=== PATIENT | female | born 1945 | race Caucasian/White ===

== ENCOUNTER → 2016-12-26 | Outpatient (CLI) | payer MEDICARE, OTHER ==
[~2016-12-26] MED LIST: DOXY40CP PO; LISI-167 PO
== END | disposition home or self-care (01) ==
LOC: CFH 12:52
PROVIDERS: ATTEND Family Medicine
DX: Z12.31 Encounter for screening mammogram for malignant neoplasm of breast (principal)
CPT/HCPCS: G0202

== ENCOUNTER → 2017-10-09 | Outpatient (CLI) | payer MEDICARE, OTHER | LOC: CFH 07:22 | PROVIDERS: ATTEND Internal Medicine Gastroenterology | DX: K70.9 Alcoholic liver disease, unspecified (principal); R94.5 Abnormal results of liver function studies; R11.10 Vomiting, unspecified; R63.0 Anorexia; R63.4 Abnormal weight loss | CPT/HCPCS: 76700 ==

== ENCOUNTER → 2018-01-23 | Outpatient (CLI) | payer MEDICARE, OTHER | END | disposition home or self-care (01) | LOC: CFH 10:44 | PROVIDERS: ATTEND Family Medicine | DX: Z12.31 Encounter for screening mammogram for malignant neoplasm of breast (principal); R92.1 Mammographic calcification found on diagnostic imaging of breast | CPT/HCPCS: 77063; 77067 ==

== ENCOUNTER 2018-12-31 13:36 | Outpatient (CLI) | payer MEDICARE, OTHER | END 2018-12-31 23:59 | disposition home or self-care (01) | LOC: CFH 13:36 | PROVIDERS: ATTEND Family Medicine | DX: Z13.820 Encounter for screening for osteoporosis (principal); Z78.0 Asymptomatic menopausal state | CPT/HCPCS: 77080 ==

== ENCOUNTER 2019-05-30 11:11 | Inpatient (IN) | payer MEDICARE, OTHER ==
[~2019-05-30] VITALS: Ht 170.2 cm; Wt 66.0 kg
--- NOTE | 2019-05-30 11:39 | NUR ---
SHOEBLACK: PT TO ROOM FROM LOBBY VIA W/C
--- NOTE | 2019-05-30 11:53 | NUR ---
MD EXAMINING PT. FAMILY AT BEDSIDE EXPRESSING CONCERNS ABOUT PT'S ABILITY TO CARE FOR HERSELF.
[2019-05-30] MEDS ORDERED: SODIUM CHLORIDE 0.9% 1,000 ML IV ONE ×2 (11:54→13:22)
[2019-05-30] MEDS ORDERED: LORazepam 2 MG/ML, 1ML IVPush ONE (12:00)
[2019-05-30] MEDS ORDERED: SODIUM CHLORIDE 0.9% 1,000ML IVBOLUS ONE (12:00)
[2019-05-30] MEDS ORDERED: SODIUM CHLORIDE FLUSH 10ML SYR IVF ONE (12:00)
[2019-05-30] MEDS ORDERED: ONDANSETRON 2MG/ML, 2ML IVPush ONE (12:00)
[2019-05-30] MEDS ORDERED: ONDANSETRON 2MG/ML, 2ML ONE (12:23)
[2019-05-30] MEDS ORDERED: LORazepam 2 MG/ML, 1ML ONE (12:24)
[2019-05-30 12:25] LABS: BASOPHILS % (AUTO) 0 % (0-1); EOSINOPHILS # (AUTO) 0.02 x10^3/uL (0-0.4); EOSINOPHILS % (AUTO) 1 % (1-7); LYMPHOCYTES # (AUTO) 0.45 x10^3/uL (1-3.4); LYMPHOCYTES % (AUTO) 12 % (22-44); MD NO; MEAN CORPUSCULAR HEMOGLOBIN 35.5 pg (27.0-34.8); MEAN CORPUSCULAR HGB CONC 33.9 g/dL (32.4-35.8); MEAN CORPUSCULAR VOLUME 104.6 fL (80-100); MEAN PLATELET VOLUME 5.9 fL (7.4-10.4); MONOCYTES # (AUTO) 0.31 x10^3/uL (0.2-0.8); MONOCYTES % (AUTO) 8 % (2-9); NEUTROPHILS # (AUTO) 2.92 x10^3/uL (1.8-6.8); NEUTROPHILS % (AUTO) 79 % (42-75); PLATELET COUNT 109 x10^3/uL (130-400); RED BLOOD COUNT 4.16 x10^6/uL (3.82-5.3); RED CELL DISTRIBUTION WIDTH 14.9 % (9.6-15.2)
--- NOTE | 2019-05-30 12:32 | NUR ---
AFTER MEDICATED PER MAR, PT TO CT.
[2019-05-30 12:38] LABS: ALANINE AMINOTRANSFERASE 216 U/L (12-78); ALBUMIN 4.1 g/dL (3.4-5.0); ANION GAP 12 mmol/L (5-15); CALCIUM 8.4 mg/dL (8.5-10.1); CHLORIDE 99 mmol/L (98-107); CREATININE 0.62 mg/dL (0.55-1.02)
[2019-05-30 12:40] LABS: ALKALINE PHOSPHATASE 94 U/L (45-117); BILIRUBIN,TOTAL 1.2 mg/dL (0.2-1.0); TOTAL PROTEIN 7.2 g/dL (6.4-8.2)
[2019-05-30] MEDS ORDERED: SODIUM CHLORIDE FLUSH 10ML SYR IVF PRN (13:30)
[2019-05-30] MEDS ORDERED: THIAMINE 100MG TABLET PO ONE (13:30)
--- NOTE | 2019-05-30 13:42 | NUR ---
pt less shaky and feeling better since medicated. hospitalist at bedside
[2019-05-30 13:58] LABS: MICROSCOPIC AUTO
[2019-05-30] MEDS ORDERED: CHLORDIAZEPOXIDE 25 MG CAPSULE PO PRN ×3 (14:00)
[2019-05-30] MEDS ORDERED: CHLORDIAZEPOXIDE 10 MG CAPSULE PO PRN ×2 (14:00→19:00)
[2019-05-30] MEDS ORDERED: ONDANSETRON 2MG/ML, 2ML IV PRN (14:00)
[2019-05-30 14:03] LABS: CULTURE INDICATED? NO
--- NOTE | 2019-05-30 14:05 | NUR ---
report to edgar [facility]. pt to be transported
[2019-05-30 15:04] VITALS: BP 144/93
[2019-05-30] MEDS: SODIUM CHLORIDE 0.9% 1,000 ML IV SCH (15:37)
[2019-05-30] MEDS ORDERED: MAGNESIUM SULFATE PMX 2GM/50ML 50 ML IV ONE (16:00)
[2019-05-30] MEDS ORDERED: [UNRECOGNIZED DRUG - REMARK] MC PRN (19:00)
[2019-05-30] MEDS ORDERED: CHLORDIAZEPOXIDE 5 MG CAPSULE PO PRN ×2 (19:00)
[2019-05-30] MEDS: APIXABAN 5 MG TABLET PO SCH (21:00)
[2019-05-30 21:58] VITALS: BP 138/84
[2019-05-31 00:23] VITALS: BP 151/83
[2019-05-31] MEDS: SODIUM CHLORIDE 0.9% 1,000 ML IV SCH ×4 (02:01→21:57)
[2019-05-31 05:09] LABS: AMPHETAMINE SCREEN, URINE Negative (Negative); BARBITURATE SCREEN, URINE Negative (Negative); BENZODIAZEPINE SCREEN, URINE Positive (Negative); CANNABINOID SCREEN, URINE Negative (Negative); COCAINE SCREEN, URINE Negative (Negative); METHADONE SCREEN, URINE Negative (Negative); OPIATE SCREEN, URINE Negative (Negative)
[2019-05-31 07:25] VITALS: BP 137/89
[2019-05-31] MEDS ORDERED: LORazepam 0.5MG TABLET PO PRN (08:30)
[2019-05-31] MEDS ORDERED: LORazepam 2 MG/ML, 1ML IV PRN ×2 (08:30)
[2019-05-31] MEDS ORDERED: LORazepam 1MG TABLET PO PRN ×2 (08:30)
[2019-05-31] MEDS: PANTOPRAZOLE 40 MG IV IVPush SCH (08:36)
[2019-05-31] MEDS: FOLIC ACID 1 MG TABLET PO SCH (08:36)
[2019-05-31] MEDS: THIAMINE 100MG TABLET PO SCH (08:36)
[2019-05-31] MEDS: MULTIVITAMINS/MINERALS TABLET PO SCH (08:36)
[2019-05-31] MEDS: LISINOPRIL 10 MG TABLET PO SCH (08:37)
[2019-05-31] MEDS: APIXABAN 5 MG TABLET PO SCH ×2 (08:44→21:57)
[2019-05-31 09:39] LABS: CLOSTRIDIUM DIFFICILE ANTIGEN NEGATIVE; CLOSTRIDIUM DIFFICILE TOXIN NEGATIVE (Negative)
[2019-05-31 13:04] VITALS: BP 118/80
[2019-05-31] MEDS: LORazepam 2 MG/ML, 1ML IV PRN ×3 (14:10→21:57)
[2019-05-31] MEDS ORDERED: LISI-170 PO (14:46)
[2019-05-31 20:06] VITALS: BP 136/94
[2019-06-01 01:54] VITALS: BP 122/85
[2019-06-01 05:22] LABS: CALCIUM 7.7 mg/dL (8.5-10.1); CHLORIDE 111 mmol/L (98-107)
[2019-06-01 05:29] LABS: ALANINE AMINOTRANSFERASE 121 U/L (12-78); ALBUMIN 2.8 g/dL (3.4-5.0); ALKALINE PHOSPHATASE 59 U/L (45-117); ANION GAP 7 mmol/L (5-15); BILIRUBIN,TOTAL 0.9 mg/dL (0.2-1.0); CREATININE 0.41 mg/dL (0.55-1.02); TOTAL PROTEIN 5.4 g/dL (6.4-8.2)
[2019-06-01] MEDS: SODIUM CHLORIDE 0.9% 1,000 ML IV SCH ×2 (05:29→12:44)
[2019-06-01] MEDS: PANTOPRAZOLE 40 MG IV IVPush SCH (07:36)
[2019-06-01 07:46] VITALS: BP 148/95
[2019-06-01] MEDS: THIAMINE 100MG TABLET PO SCH (08:37)
[2019-06-01] MEDS: FOLIC ACID 1 MG TABLET PO SCH (08:37)
[2019-06-01] MEDS: LISINOPRIL 10 MG TABLET PO SCH (08:37)
[2019-06-01] MEDS: APIXABAN 5 MG TABLET PO SCH ×2 (08:37→20:35)
[2019-06-01] MEDS: MULTIVITAMINS/MINERALS TABLET PO SCH (08:37)
[2019-06-01] MEDS: LORazepam 2 MG/ML, 1ML IV PRN ×2 (11:35→14:25)
[2019-06-01 14:55] VITALS: BP 160/97
[2019-06-01 19:55] VITALS: BP 150/104
[2019-06-01 20:30] VITALS: BP 147/96
[2019-06-01] MEDS: LORazepam 1MG TABLET PO PRN (20:42)
[2019-06-02] MEDS: LORazepam 1MG TABLET PO PRN ×3 (01:04→14:08)
[2019-06-02 01:08] VITALS: BP 142/91
[2019-06-02 05:11] VITALS: BP 142/94
[2019-06-02] MEDS: SODIUM CHLORIDE 0.9% 1,000 ML IV SCH (05:14)
[2019-06-02] MEDS: PANTOPROZOLE 40MG TABLET PO SCH (05:15)
[2019-06-02 05:23] LABS: CALCIUM 8.1 mg/dL (8.5-10.1); CHLORIDE 107 mmol/L (98-107)
[2019-06-02 05:29] LABS: ALANINE AMINOTRANSFERASE 155 U/L (12-78); ALBUMIN 3.1 g/dL (3.4-5.0); ALKALINE PHOSPHATASE 59 U/L (45-117); ANION GAP 7 mmol/L (5-15); BILIRUBIN,TOTAL 0.9 mg/dL (0.2-1.0); CREATININE 0.33 mg/dL (0.55-1.02); TOTAL PROTEIN 5.8 g/dL (6.4-8.2)
[2019-06-02 09:00] VITALS: BP 128/86
[2019-06-02] MEDS: THIAMINE 100MG TABLET PO SCH (09:02)
[2019-06-02] MEDS: FOLIC ACID 1 MG TABLET PO SCH (09:02)
[2019-06-02] MEDS: LISINOPRIL 20 MG TABLET PO SCH (09:02)
[2019-06-02] MEDS: MULTIVITAMINS/MINERALS TABLET PO SCH (09:02)
[2019-06-02] MEDS: POTASSIUM CHLORIDE 20 MEQ TAB.ER.PRT PO SCH ×2 (09:02→18:03)
[2019-06-02] MEDS: APIXABAN 5 MG TABLET PO SCH ×2 (09:02→21:20)
[2019-06-02 14:19] VITALS: BP 125/86
[2019-06-02 20:10] VITALS: BP 148/99
[2019-06-03 01:18] VITALS: BP 143/83
[2019-06-03] MEDS: SODIUM CHLORIDE 0.9% 1,000 ML IV SCH ×2 (02:35→23:56)
[2019-06-03] MEDS: PANTOPROZOLE 40MG TABLET PO SCH (05:48)
[2019-06-03 06:05] LABS: ANION GAP 6 mmol/L (5-15); CALCIUM 8.5 mg/dL (8.5-10.1); CHLORIDE 109 mmol/L (98-107)
[2019-06-03 06:08] LABS: ALANINE AMINOTRANSFERASE 187 U/L (12-78); ALKALINE PHOSPHATASE 60 U/L (45-117); CREATININE 0.46 mg/dL (0.55-1.02); TOTAL PROTEIN 5.8 g/dL (6.4-8.2)
[2019-06-03 07:08] VITALS: BP 145/92
[2019-06-03] MEDS: MULTIVITAMINS/MINERALS TABLET PO SCH (08:06)
[2019-06-03] MEDS: THIAMINE 100MG TABLET PO SCH (08:06)
[2019-06-03] MEDS: FOLIC ACID 1 MG TABLET PO SCH (08:06)
[2019-06-03] MEDS: POTASSIUM CHLORIDE 20 MEQ TAB.ER.PRT PO SCH ×2 (08:06→17:52)
[2019-06-03] MEDS: LISINOPRIL 20 MG TABLET PO SCH (08:07)
[2019-06-03] MEDS ORDERED: QUETIAPINE 25MG TABLET PO PRN (11:00)
[2019-06-03] MEDS ORDERED: PHARMACY INSTRUCTION MC PRN (11:00)
[2019-06-03] MEDS ORDERED: INSTRUCTION SEE COMMENTS XX PRN (11:00)
[2019-06-03] MEDS ORDERED: IBUPROFEN 200 MG TABLET PO PRN (11:00)
[2019-06-03 12:23] VITALS: BP 125/87
[2019-06-03 12:34] LABS: ANA SCREEN NEGATIVE (Negative)
[2019-06-03 19:50] VITALS: BP 123/86
[2019-06-03] MEDS ORDERED: MELATONIN 3 MG TABLET PO SCH (21:00)
[2019-06-04] MEDS: PANTOPROZOLE 40MG TABLET PO SCH (06:03)
[2019-06-04 07:43] VITALS: BP 130/87
[2019-06-04] MEDS: MULTIVITAMINS/MINERALS TABLET PO SCH (08:03)
[2019-06-04] MEDS: FOLIC ACID 1 MG TABLET PO SCH (08:03)
[2019-06-04] MEDS: THIAMINE 100MG TABLET PO SCH (08:03)
[2019-06-04] MEDS: LISINOPRIL 20 MG TABLET PO SCH (08:04)
[2019-06-04] MEDS: SODIUM CHLORIDE 0.9% 1,000 ML IV SCH (08:07)
[2019-06-04] MEDS ORDERED: LISI-170 PO (12:26)
[2019-06-04] MEDS ORDERED: THIA100T67 PO (12:26)
[2019-06-04] MEDS ORDERED: FOLI-17 PO (12:26)
[2019-06-04] MEDS ORDERED: MELA3TAB56 PO (12:26)
[2019-06-04 14:32] VITALS: BP 110/74
[2019-06-04 17:55] VITALS: BP 199/96
== END 2019-06-04 17:34 | DRG 433 ==
LOC: ED 12:24 → EDIP 13:22 → 4WST 14:45 → 4EST 05-31 14:36
PROVIDERS: ADMIT Internal Medicine Infectious Disease; ATTEND Internal Medicine
PROC: 0T9B70Z Drainage of Bladder with Drainage Device, Via Natural or Artificial Opening (ICD-10-PCS; principal; 2019-05-30)
DX: K70.10 Alcoholic hepatitis without ascites (principal); E87.2 Acidosis; F10.239 Alcohol dependence with withdrawal, unspecified; E87.1 Hypo-osmolality and hyponatremia; E83.42 Hypomagnesemia; I10 Essential (primary) hypertension; J06.9 Acute upper respiratory infection, unspecified; R29.6 Repeated falls; Z79.899 Other long term (current) drug therapy; Z86.718 Personal history of other venous thrombosis and embolism; Z90.710 Acquired absence of both cervix and uterus
CPT/HCPCS: 36415; 70450; 70551; 71045; 76705; 80053; 80074; 80307; 81001; 82140; 83605; 83735; 84100; 85025; 86038; 87040; 87324; 87633; 89055; 93005; 93306; 96374; 96375; 96376; 99285; G0378; J2405; C9113; J2060; J3475; J7030